=== PATIENT | female | born 1980 | race Caucasian/White ===

== ENCOUNTER 2021-08-12 23:41 | Emergency (ER) | payer MEDICAID ==
[2021-08-12] MEDS ORDERED: DUONEB 0.5-3 MG/3 ml Neb IH ONE (23:51)
[2021-08-12] MEDS: DUONEB 0.5-3 MG/3 ml Neb IH ONE (23:58)
--- NOTE | 2021-08-13 00:05 | ERPHSYRPT ---
- History of Present Illness Time Seen by Provider: 08/12/21 23:58 Source: patient Exam Limitations: no limitations Patient Subjective Stated Complaint: SOB Triage Nursing Assessment: Patient brought back to ED via EMS and transferred to bed per self. Patient A+O X 3. Patient's skin pink, warm and dry. Patient states she has asthma and started to feel SOB and when she realized her Symbocort was out she started to panic. Patient was given Albuterol and Atrovent per EMS and states she feels much better. Lungs noted to be diminished thoughout. Physician History: Patient is a 40-year-old female presents to our ED via EMS for evaluation of shortness of breath. Patient has a history of asthma. Patient started to deve lop shortness of breath. Patient tried to treat herself with Symbicort but found out her Symbicort was out. Patient called 911. Upon EMSs arrival patient was short of breath. Patient received a DuoNeb and symptoms resolved. Patient is here for evaluation. No associated chest pain. No nausea vomiting or diaphoresis. Symptoms are mild in intensity at this time. No specific triggers known. Patient is otherwise healthy. She voices no other complaints concerns at this time. Timing/Duration: today Activities at Onset: none Severity of Dyspnea-Max: moderate Severity of Dyspnea-Current: mild Possible Cause: occasional episodes Modifying Factors: Improves With: albuterol nebulizer Associated Symptoms: anxiety, No cough, No chest pain/discomfort, No fever, No insomnia, No loss of appetite, No hemoptysis, No dizziness, No heaviness, No heart racing, No muscle spasms hands, No painful breathing, No productive cough Allergies/Adverse Reactions: ibuprofen Allergy (Verified 08/12/21 23:53) Hx Influenza Vaccination/Date Given: No Hx Pneumococcal Vaccination/Date Given: No Immunizations Up to Date: Yes Travel Risk - International Travel Have you traveled outside of the country in past 3 weeks: No - Coronavirus Screening Are you exhibiting any of the following symptoms?: No Close contact with a COVID-19 positive Pt in past 14-21 Days: No - Vaccine Status Have you recieved a Covid-19 vaccination: Yes Acute Care Assistant: [employer] - Vaccination Dates Date of 2cond Vaccination (if applicable): Jun 2021 - Review of Systems Constitutional: No Symptoms, No Fever, No Chills Eyes: No Symptoms Ears, Nose, & Throat: No Symptoms Respiratory: No Symptoms, No Cough, No Dyspnea Cardiac: No Symptoms, No Chest Pain, No Edema, No Syncope Abdominal/Gastrointestinal: No Symptoms, No Abdominal Pain, No Nausea, No Vomiting, No Diarrhea Genitourinary Symptoms: No Symptoms, No Dysuria Musculoskeletal: No Symptoms, No Back Pain, No Neck Pain Skin: No Symptoms, No Rash Neurological: No Symptoms, No Dizziness, No Focal Weakness, No Sensory Changes Psychological: No Symptoms Endocrine: No Symptoms Hematologic/Lymphatic: No Symptoms Immunological/Allergic: No Symptoms All Other Systems: Reviewed and Negative - Past Medical History Pertinent Past Medical History: Yes Neurological History: No Pertinent History ENT History: No Pertinent History Cardiac History: Hypertension Respiratory History: Asthma Endocrine Medical History: No Pertinent History Musculoskeletal History: No Pertinent History GI Medical History: No Pertinent History History: No Pertinent History Psycho-Social History: No Pertinent History Female Reproductive Disorders: No Pertinent History - Past Surgical History Past Surgical History: Yes Neuro Surgical History: No Pertinent History Cardiac: No Pertinent History Respiratory: No Pertinent History Gastrointestinal: Cholecystectomy Genitourinary: No Pertinent History Musculoskeletal: Orthopedic Surgery Female Surgical History: No Pertinent History Other Surgical History: left leg 2014 - Social History Smoking Status: Former smoker Exposure to second hand smoke: Yes Drug Use: none Patient Lives Alone: No - Female History Hx Last Menstrual Period: currently Hx Now: No - Nursing Vital Signs Nursing Vital Signs: Initial Vital Signs Temperature 98.2 F 08/12/21 23:53 Pulse Rate 85 08/12/21 23:53 Respiratory Rate 20 08/12/21 23:53 Blood Pressure 159/94 08/12/21 23:53 O2 Sat by Pulse Oximetry 95 08/12/21 23:53 Pain Scale Pain Intensity 0 - Physical Exam General Appearance: no apparent distress, alert Eye Exam: PERRL/EOMI Ears, Nose, Throat Exam: hearing grossly normal, normal ENT inspection, normal pharynx Neck Exam: normal inspection, non-tender, supple, full range of motion Respiratory Exam: normal breath sounds, chest tenderness, lungs clear, respiratory distress Cardiovascular/Chest Exam: normal heart sounds, regular rate/rhythm, normal pe ripheral pulses Abdominal/Gastrointestinal Exam: soft, normal bowel sounds, No tenderness, No distention, No mass, No guarding Extremity Exam: non-tender, normal range of motion, normal inspection, no calf tenderness, no pedal edema Peripheral Pulses Exam: dorsalis-pedis (R): 2+, dorsalis-pedis (L): 2+ Neurologic Exam: alert, oriented x 3, cooperative, fitness coach II-XII nml as tested, normal mood/affect, sensation nml, No motor deficits Skin Exam: normal color, warm, No dry, No rash, No petechiae, No jaundice Lymphatic Exam: No adenopathy SpO2 Interpretation: normal SpO2: 100 O2 Delivery: Room Air - Course Nursing assessment & vital signs reviewed: Yes EKG Interpreted by Me: RATE (82), Sinus Rhythm, NORMAL AXIS, NORMAL INTERVALS - Radiology Exams Chest X-ray Interpretation: Interpreted by me (Lungs are clear. Normal cardiac silhouette, intact bony thorax.) - CT Exams Chest CT Interpretation: Tele-radiologist Report (No acute pulmonary emboli calcified granulomas within the lower lobes bilaterally. Calcified subcarinal lymph nodes compatible with prior granulomatous disease.) Ordered Tests: Active Orders 24 hr Category Date Time Status Mammographer STAT Care 08/12/21 23:48 Active EKG-ER Only STAT Care 08/12/21 23:48 Active IV Insertion STAT Care 08/12/21 23:48 Active Pulse Oximetry (ED) STAT Care 08/12/21 23:48 Active CHEST 1 VIEW (PORTABLE) Stat Exams 08/13/21 01:25 Taken CHEST WITH CONTRAST [CT] Stat Exams 08/13/21 02:28 Taken TROPONIN Q3H Lab 08/12/21 23:48 Completed TROPONIN Q3H Lab 08/13/21 02:53 Completed TROPONIN Q3H Lab 08/13/21 05:48 Ordered TROPONIN Q3H Lab 08/13/21 08:48 Ordered TROPONIN Q3H Lab 08/13/21 11:48 Ordered Respiratory Therapy Assessment DAILY RT 08/12/21 23:59 Active Medication Summary Discontinued Medications Generic Name Dose Route Start Last Admin Trade Name Freq PRN Reason Stop Dose Admin Albuterol Sulfate Confirm 08/13/21 00:28 Albuterol Sulfate 8 Gm Mdi Hfa Administered 08/13/21 00:29 Dose 8 gm IH .STK-MED ONE Albuterol/Ipratropium 3 ml 08/12/21 23:48 08/12/21 23:58 Ipratropium/Albuterol Sulfate 3 Ml Ampul.Neb IH 08/12/21 23:49 3 ml STAT ONE Administration Albuterol/Ipratropium Confirm 08/12/21 23:51 Ipratropium/Albuterol Sulfate 3 Ml Ampul.Neb Administered 08/12/21 23:52 Dose 3 ml IH .STK-MED ONE Methylprednisolone Sodium 0 mg 08/12/21 23:48 08/13/21 00:11 Succinate 125 mg/ Sterile IV 08/12/21 23:49 125 mg Water 2 ml STAT ONE Administration Methylprednisolone Sodium Succinate Confirm 08/13/21 00:09 Methylprednis Sod Succ 125 Mg/2 Ml Vial Administered 08/13/21 00:10 Dose 125 mg .ROUTE .STK-MED ONE Potassium Chloride 40 meq 08/13/21 01:36 08/13/21 01:40 Potassium Chloride 10 Meq Tablet PO 08/13/21 01:37 40 meq STAT ONE Administration Potassium Chloride Confirm 08/13/21 01:38 Potassium Chloride 10 Meq Tablet Administered 08/13/21 01:39 Dose 40 meq PO .STK-MED ONE Fluticasone/Salmeterol Confirm 08/13/21 00:27 Fluticasone/Salmeterol 230/21 Mdi 120 Puff Administered 08/13/21 00:28 Dose 1 puff IH .STK-MED ONE Sterile Water Confirm 08/13/21 00:09 Water For Injection,Sterile 10 Ml Vial Administered 08/13/21 00:10 Dose 10 ml IJ .STK-MED ONE Lab/Rad Data: Laboratory Result Diagrams 08/12/21 01:09 08/12/21 01:09 Laboratory Results 08/13/21 08/12/21 08/12/21 Range/Units 02:53 23:48 01:09 WBC (4.0-10.5) K/mm3 RBC (4.1-5.4) M/mm3 Hgb (12.0-16.0) gm/dl Hct (35-47) % MCV (78-100) fl MCH (26-32) pg MCHC (32-36) g/dl RDW (11.5-14.0) % Plt Count (150-450) K/mm3 MPV (7.5-11.0) fl Gran % (36.0-66.0) % Eos # (Auto) (0-0.5) Absolute Lymphs (auto) (1.0-4.6) Absolute Monos (auto) (0.0-1.3) Lymphocytes % (24.0-44.0) % Monocytes % (0.0-12.0) % Eosinophils % (0.00-5.0) % Basophils % (0.0-0.4) % Absolute Granulocytes (1.4-6.9) Basophils # (0-0.4) D-Dimer 539 H* (215-500) ng/mL Sodium (137-145) mmol/L Potassium (3.5-5.1) mmol/L Chloride (98-107) mmol/L Carbon Dioxide (22-30) mmol/L Anion Gap (5-15) MEQ/L BUN (7-17) mg/dL Creatinine (0.52-1.04) mg/dL Estimated GFR ML/MIN Glucose (74-106) mg/dL Calcium (8.4-10.2) mg/dL Total Bilirubin (0.2-1.3) mg/dL AST (14-36) U/L ALT (0-35) U/L Alkaline Phosphatase (38-126) U/L Troponin I < 0.012 < 0.012 (0.000-0.034) ng/mL Serum Total Protein (6.3-8.2) g/dL Albumin (3.5-5.0) g/dL 08/12/21 08/12/21 Range/Units 01:09 01:09 WBC 9.5 (4.0-10.5) K/mm3 RBC 4.88 (4.1-5.4) M/mm3 Hgb 11.2 L (12.0-16.0) gm/dl Hct 35.4 (35-47) % MCV 72.5 L (78-100) fl MCH 23.0 L (26-32) pg MCHC 31.6 L (32-36) g/dl RDW 17.1 H (11.5-14.0) % Plt Count 409 (150-450) K/mm3 MPV 9.0 (7.5-11.0) fl Gran % 85.0 H (36.0-66.0) % Eos # (Auto) 0.11 (0-0.5) Absolute Lymphs (auto) 0.88 L (1.0-4.6) Absolute Monos (auto) 0.43 (0.0-1.3) Lymphocytes % 9.3 L (24.0-44.0) % Monocytes % 4.5 (0.0-12.0) % Eosinophils % 1.2 (0.00-5.0) % Basophils % 0.0 (0.0-0.4) % Absolute Granulocytes 8.06 H (1.4-6.9) Basophils # 0 (0-0.4) D-Dimer (215-500) ng/mL Sodium 138 (137-145) mmol/L Potassium 3.0 L* (3.5-5.1) mmol/L Chloride 99 (98-107) mmol/L Carbon Dioxide 29 (22-30) mmol/L Anion Gap 12.3 (5-15) MEQ/L BUN 16 (7-17) mg/dL Creatinine 0.98 (0.52-1.04) mg/dL Estimated GFR > 60.0 ML/MIN Glucose 139 H (74-106) mg/dL Calcium 9.0 (8.4-10.2) mg/dL Total Bilirubin 0.40 (0.2-1.3) mg/dL AST 16 (14-36) U/L ALT 12 (0-35) U/L Alkaline Phosphatase 118 (38-126) U/L Troponin I (0.000-0.034) ng/mL Serum Total Protein 7.9 (6.3-8.2) g/dL Albumin 4.1 (3.5-5.0) g/dL - Progress Progress: improved Air Movement: good Progress Note: Patient reassessed. Symptoms resolved. No wheezing. No tachypnea. No hypoxia. Patient was given Advair and albuterol inhaler Ventolin in our ED. She will take these 2 products home. Additionally patient requested to have her Symbicort and Singulair refilled as well. This was done as well. Hypokalemia addressed with a dose of oral potassium. Patient states she is ready for discharge. Patient voices no other complaints concerns at this time. If patient can get her Symbicort and Singulair prescription filled at the pharmacy she will not use the Advair and Ventolin inhaler. Portions of this note were created with voice recognition technology. There may be grammatical, spelling, punctuation or sound alike errors 08/13/21 03:43 Blood Culture(s) Obtained: No Antibiotics given: No Counseled pt/family regarding: lab results, diagnosis, need for follow-up, rad results - Departure Departure Disposition: Home Clinical Impression: Asthma exacerbation, Hypokalemia, Calcified granuloma of lung Condition: Stable Critical Care Time: No Referrals: DOCTOR,NO FAMILY [Primary Care Provider] - Follow up/PCP as directed KENIA GIL MD [ACTIVE STAFF] - Follow up/PCP as directed Additional Instructions: Discharge/Care Plan SUNITA SCHMIDT was seen on 08/13/21 in the Emergency Room. The patient was counseled regarding Diagnosis,Lab results, Imaging studies, need for follow up and when to return to the Emergency Room. Prescriptions given: Discharge Note I have spoken with the patient and/or caregivers. I have explained the patient's condition, diagnosis and treatment plan based on the information available to me at this time. I have answered the patient's and/or caregiver's questions and addressed any concerns. The patient and/or caregivers have as good understanding of the patient's diagnosis, condition and treatment plan as can be expected at this point. The vital signs have been stable. The patient's condition is stable and appropriate for discharge from the emergency department. The patient will pursue further outpatient evaluation with the primary care physician or other designated or consulting physician as outlined in the discharge instructions. The patient and/or caregivers are agreeable to this plan of care and follow-up instructions have been explained in detail. The patient and/or caregivers have received these instruction. The patient/and or caregivers are aware that any significant change in condition or worsening of symptoms should prompt an immediate return to this or the closest emergency department or call 911.
[2021-08-13] MEDS ORDERED: Sterile H2O 10 ml IJ ONE (00:09)
[2021-08-13] MEDS ORDERED: solu-MEDROL ONE (00:09)
[2021-08-13] MEDS: solu-MEDROL 125 MG, Sterile H2O 10 ml 2 ML IV ONE ×2 (00:11)
[2021-08-13] MEDS ORDERED: Advair Hfa 230/21 Mcg MDI IH ONE (00:27)
[2021-08-13] MEDS ORDERED: Ventolin Hfa MDI IH ONE (00:28)
[2021-08-13 01:12] LABS: Absolute Neutrophil Ct (ANC) 8.06 (1.4-6.9); Basophil (Absolute #) 0 (0-0.4); Eosinophil % 1.2 % (0.00-5.0); Eosinophil (Absolute #) 0.11 (0-0.5); Hematocrit 35.4 % (35-47); Hemoglobin 11.2 gm/dl (12.0-16.0); Lymphocyte (Absolute #) 0.88 (1.0-4.6); Lymphocytes % 9.3 % (24.0-44.0); Mean Cell Volume 72.5 fl (78-100); Mean Corpuscular Hgb Concent. 31.6 g/dl (32-36); Monocyte (Absolute #) 0.43 (0.0-1.3); Monocytes % 4.5 % (0.0-12.0); Platelet Count 409 K/mm3 (150-450); Red Blood Count 4.88 M/mm3 (4.1-5.4); Red Cell Distribution Width 17.1 % (11.5-14.0); White Blood Count 9.5 K/mm3 (4.0-10.5)
[2021-08-13 01:29] LABS: ALBUMIN 4.1 g/dL (3.5-5.0); ALKALINE PHOSPHATASE 118 U/L (38-126); ANION GAP 12.3 MEQ/L (5-15); BLOOD UREA NITROGEN 16 mg/dL (7-17); CHLORIDE 99 mmol/L (98-107); Carbon Dioxide 29 mmol/L (22-30); Creatinine 1 0.98 mg/dL (0.52-1.04); EST GLOMERULAR FILTRATION RATE > 60.0 ML/MIN; Glucose 139 mg/dL (74-106); SGOT/AST 16 U/L (14-36); SGPT/ALT 12 U/L (0-35); SODIUM 138 mmol/L (137-145); Total Protein 7.9 g/dL (6.3-8.2)
[2021-08-13] MEDS ORDERED: Klor Con 10 MEQ PO ONE (01:38)
[2021-08-13] MEDS: Klor Con 10 MEQ PO ONE (01:40)
[2021-08-13 03:40] VITALS: PULSE 80
[2021-08-13 03:43] VITALS: O2SAT 100
[2021-08-13 03:44] VITALS: BP 119/67
--- NOTE | 2021-08-13 08:51 | XRAY ---
Indication: Short of breath. Comparison: None Portable chest demonstrates normal heart and lungs. Bony thorax intact with incidental left upper chest metallic BB.
--- NOTE | 2021-08-13 08:51 | XRAY ---
Indication: Short of breath. Elevated d-dimer. Multiple contiguous axial images obtained through the chest using 80 cc Isovue 370 contrast and PE protocol. Comparison: None There is suboptimal opacification of the pulmonary arteries and mild diffuse respiration artifact limiting evaluation for pulmonary embolus. No obvious pulmonary embolus. Heart is not enlarged. Aorta is normal in course and caliber. A few tiny mediastinal and left hilar calcified nodes. No pathologic mediastinal/hilar lymphadenopathy. Lungs demonstrate minimal right middle and lingula subsegmental atelectasis/scarring. A few tiny right lower lobe calcified granulomas. No suspicious pulmonary mass, infiltrate, effusion, or pneumothorax. Bony thorax intact with minimal degenerative changes throughout the spine. Limited upper abdomen demonstrates 2.3 cm right adrenal gland mass, possible adenoma. Incidental 16 cm splenomegaly and cholecystectomy clips. Impression: 1. Pulmonary embolus evaluation limited by suboptimal contrast opacification and respiration artifact. No obvious pulmonary embolus. 2. No acute cardiopulmonary abnormalities. 3. 2.3 cm right adrenal adenoma, possible adenoma. Noncontrast exam could confirm. 3. Incidental chronic bony findings, splenomegaly, and old granulomatous disease. Comment: Preliminary interpretation made by [facility]. No critical discrepancy.
== END 2021-08-13 03:47 | disposition home or self-care (01) ==
LOC: ED 23:41
DX: J45.901 Unspecified asthma with (acute) exacerbation (principal); E87.6 Hypokalemia; J84.10 Pulmonary fibrosis, unspecified; R06.02 Shortness of breath; I10 Essential (primary) hypertension; Z79.899 Other long term (current) drug therapy
CPT/HCPCS: 36415; 71045; 71260; 80053; 84484; 85025; 85379; 93005; 93041; 94640; 94760; 96374; 99284; J2930; A9270-GY